=== PATIENT | male | born 1935 | race Caucasian/White ===

== ENCOUNTER 2017-04-10 11:49 | Emergency (ER) | payer MEDICARE ==
--- NOTE | 2017-04-12 13:13 | ER ---
ADMIT: 04/10/2017 RM/LOC: ER [facility] MR#: [id number] [address] [id number] LUDIN MORGAN [place] [address] [place] [id number] Emergency Room Report SEX: M AGE: 81 : 1935 DATE: 04/10/2017 SUBJECTIVE: The patient is an 81-year-old male, who came to the ER with a chief complaint of dizziness, not vertigo, feeling near fainting, while he was at [employer]. The patient states he was standing up and he was at [employer], that he felt sudden dizziness without any chest pain or shortness of breath. The patient states the dizziness is increasing when he stands up from lying flat or a sitting position. The patient denies any new numbness or weakness or visual changes. PHYSICAL EXAMINATION: VITAL SIGNS: The patient has stable vitals, in no pain or distress. Answers the questions. HEAD AND NECK: Pupils are 3 mm, reactive to light. Normal extraocular movements. Trachea is midline. No bruit on the neck. NECK: Soft. HEART: Normal heart sounds without any murmurs or gallops. LUNGS: Normal bilateral equal breath sounds. ABDOMEN: Soft and nontender. SKIN: There are no skin rashes and there is no sign of trauma in any parts of the body. NEURO: Grossly normal. The patient's orthostatic vitals were negative, but when the patient stood up, he became symptomatic. The patient was started on IV fluids. EKG did not show any ST or T-wave changes or Q-waves or arrhythmia. Chest x-ray was negative and noncontributory. LABORATORY DATA: Lab work showed white cells of 6.8 11.2. Sodium was 139 with a potassium of 4.0. BUN was elevated to 41 and creatinine was 2.0. The outside clinic was contacted and it showed that 3 days ago, the patient had creatinine of 1.4. The patient totally received 1.5 L of fluid and states he felt better. With a diagnosis of dehydration and acute kidney injury, the patient was advised to be admitted for further followups and treatments. The patient and the family decided that they preferred to go to their town which is about 2 hours away and be followed up by the primary doctor which they have an appointment today. The patient is stable and after discussing the cons and pros, the patient left against medical advice with copies of the lab works to be followed up by the primary doctor today. Bear Brandon MD/ alfonso JOB #: [id number] CC: Bear Brandon MD, Attending Physician ADMIT: 04/10/2017 RM/LOC: [facility] MR#: [id number] [address] [place] [id number] LUDIN MORGAN [address] [place] [address] Emergency Room Report SEX: M AGE: 81 : 1935 UNKNOWN, Family Physician
== END 2017-04-10 14:40 | disposition left against medical advice (07) ==
LOC: ER 11:49
DX: N17.9 Acute kidney failure, unspecified (principal); E86.0 Dehydration; Z98.890 Other specified postprocedural states; Z79.84 Long term (current) use of oral hypoglycemic drugs; Z79.82 Long term (current) use of aspirin; Z79.899 Other long term (current) drug therapy